=== PATIENT | male | born 1975 | race American Indian/Alaskan Native ===

== ENCOUNTER 2025-05-30 01:49 | Inpatient (IN) | payer MEDICAID, SELFPAY ==
[2025-05-30] VITALS (28 sets, daily range): BP systolic 114–182; BP diastolic 74–113; PULSE 51–90; RESP 14–20; TEMP 36.4–37.2; O2SAT 95–99; BMI 36.3
--- NOTE | 2025-05-30 02:05 | EKG_ITS ---
[facility] Test Date: 2025-05-30 Pat Name: UZAIR CANADA Department: Room: - Gender: Male Manager Process Improvement: : 1975 Requested By: ED Temporary Provider Order Number: [id number] Reading MD: ED Temporary Provider Measurements Intervals [place] Rate: 84 P: 16 ME: 124 QRS: -2 QRSD: 82 T: -18 QT: 340 QTc: 403 Interpretive Statements SINUS RHYTHM LOW QRS VOLTAGE IN PRECORDIAL LEADS [QRS DEFLECTION < 1.0 mV IN CHEST LEADS] MODERATE T-WAVE ABNORMALITY, CONSIDER ANTERIOR ISCHEMIA [-0.1+ mV T-WAVE IN V3/V4] Compared to ECG 06/17/2021 14:33:46 Possible ischemia now present T-wave abnormality still present /store/S0/[id number].pdf
--- NOTE | 2025-05-30 03:06 | XR_ITS ---
Examination: PA lateral chest 2 views Technique: Upright PA and lateral chest 2 views Date and time: May 30, 2025 0314 hrs., Comparison April 07, 2022 Indications: Intermittent chest pain beginning this week. Normal heart size No lobar pneumonia or pulmonary edema. The osseous structures are intact Impression: No pneumonia or pulmonary edema
[2025-05-30 03:23] LABS: Collection Type, Urine Clean Catch; Squamous Epithelial Cell,Urine 0 /hpf (0-5); WBC,Urine 0 /hpf (0-5)
[2025-05-30 03:25] LABS: Bilirubin,Urine Negative (Negative); Blood,Urine Negative (Negative); Clarity,Urine Clear (Clear/Hazy); Color,Urine Colorless (Lt Yel-Yel); Culture Indicated,Urine Not Indicated; Glucose, Urine Negative (Negative); Ketones,Urine Negative (Negative); Leukocyte Esterase,Urine Negative (Negative); Nitrite,Urine Negative (Negative); PH,Urine 6.5 (5.0-7.0); Protein,Urine Negative (Neg - Trace); RBC,Urine < 1 /hpf (0-3); Specific Gravity,Urine 1.004 (1.001-1.035); Urobilinogen,Urine Negative mg/dL (0.0-1.0)
[2025-05-30 03:37] LABS: Basophils # (Auto) 0.1 Thou/mm3 (0.0-0.2); Basophils % (Auto) 0 % (0-2.5); Eosinophils # (Auto) 0.0 Thou/mm3 (0.0-0.5); Eosinophils % (Auto) 0 % (0-10); Hematocrit 45.2 % (41.0-53.0); Hemoglobin 15.3 g/dL (13.5-16.0); Immature Granulocytes Auto 0.05 Thou/mm3 (0.00-0.00); Lymphocytes # (Auto) 1.6 Thou/mm3 (1.0-4.8); Lymphocytes % (Auto) 13 % (10-50); Mean Corpuscular HGB Conc 33.8 g/dl (31.0-37.0); Mean Corpuscular Hemoglobin 29.7 pg (25.0-35.0); Mean Corpuscular Volume 88 fL (80-100); Monocytes # (Auto) 0.6 Thou/mm3 (0.0-0.8); Monocytes % (Auto) 5 % (0-12); Neutrophils # (Auto) 9.5 Thou/mm3 (1.8-7.7); Neutrophils % (Auto) 81 % (37-80); Nucleated Red Blood Cell # 0.00 Thou/mm3 (0.00-0.00); Nucleated Red Blood Cell % 0 /100 WBC (0); Platelet Count 265 Thou/mm3 (140-440); RDW Standard Deviation 41.4 fL (35.1-43.9); Red Blood Count 5.16 Miln/mm3 (4.50-5.90); White Blood Count 11.8 Thou/mm3 (3.8-10.6)
--- NOTE | 2025-05-30 03:37 | PD.EDRME ---
Rapid Medical Screening Exam RME Arrival date/time: 05/30/25 01:49 Chief Complaint: Chest Pain Time Seen by Provider: 05/30/25 02:45 Vital signs: Vital Signs Temperature 98.5 F 05/30/25 02:30 Pulse Rate 90 05/30/25 02:30 Respiratory Rate 18 05/30/25 02:30 Blood Pressure 182/100 H 05/30/25 02:30 Pulse Oximetry (%) 97 05/30/25 02:30 Oxygen Delivery Method Room Air 05/30/25 02:30 Vital signs reviewed by provider: Yes RME Narrative: 50-year-old male with a past medical history of prediabetes, high cholesterol presents to the ER complaining of intermittent chest pain lasting about 5 minutes at a time which started when he was on a hike on Thursday, pain is worse with exertion associated with shortness of breath and nausea. Denies smoking, drug use. Rapid medical exam performed to expedite care and facilitate ED flow; ongoing evaluation and disposition by ED physician.
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
[2025-05-30 03:51] LABS: INR 1.0 (0.9-1.3); Prothrombin Time 11.3 Seconds (9.0-12.2)
[2025-05-30 04:10] LABS: Alanine Aminotransferase 32 U/L (10-49); Albumin, Serum 4.5 gm/dL (3.5-5.0); Albumin/Globulin Ratio 1.4 (1.2-2.2); Alkaline Phosphatase 97 U/L (46-116); Anion Gap 12 (7-16); Aspartate Amino Transferase 45 U/L (0-34); BUN/Creatinine Ratio 9 Ratio (12-20); Bilirubin,Total 0.6 mg/dL (0.3-1.2); Blood Urea Nitrogen 14 mg/dL (9-23); Calcium 9.6 mg/dL (8.3-10.6); Calcium (Corrected) 9.6 mg/dL (8.5-10.1); Carbon Dioxide 24.5 mMol/L (20.0-31.0); Chloride 106 mMol/L (98-107); Creatinine (Component) 1.5 mg/dL (0.6-1.3); Estimated Creatinine Clearance 72.4 mL/min (>60); Globulin 3.3 gm/dL (2.3-3.5); Glucose 116 mg/dL (74-106); Osmolality,Calculated 284 (275-295); Potassium 3.8 mMol/L (3.4-5.1); Sodium 142 mMol/L (136-145); Total Protein 7.8 gm/dL (5.7-8.2); eGFR 56 See Note
[2025-05-30 04:11] LABS: Troponin I 3.137 ng/mL (0.0-0.045)
[2025-05-30] MEDS: NITROGLYCERIN OINT 2% 1 INCH PACKET TOP (04:26)
[2025-05-30] MEDS: PROCHLORPERAZINE INJ 5 MG/ML VIAL 2 ML IV (04:39)
--- NOTE | 2025-05-30 04:39 | EKG_ITS ---
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
[2025-05-30] MEDS: MORPHINE SULF INJ 4 MG/ML VIAL IVP (04:42)
[2025-05-30 05:11] LABS: Partial Thromboplastin Time 27.3 Seconds (22.0-36.0)
--- NOTE | 2025-05-30 05:43 | ECHO_ITS ---
Transthoracic Echo Report Ht (in): 68 Wt (lb): 245 Exam Location: Echo Lab Status: Inpatient Union Laborer: Fauzia Miles Indications: Procedure Performed: BP: 137 / 99 HR: 56 MEASUREMENTS (Male / Female) Normal Values 2D ECHO LV Diastolic Diameter PLAX 5.5 cm 4.2 - 5.9 / 3.9 - 5.3 cm LV Systolic Diameter PLAX 3.5 cm IVS Diastolic Thickness 0.9 cm 0.6 - 1.0 / 0.6 - 0.9 cm LVPW Diastolic Thickness 1.1 cm 0.6 - 1.0 / 0.6 - 0.9 cm LV Relative Wall Thickness 0.4 LVOT Diameter 2.0 cm LA Volume Index 30.1 cm?/m? 16 - 28 cm?/m? Ascending Aorta Diameter 3.6 cm M-MODE AV Cusp Separation MM 1.8 cm DOPPLER AV Peak Velocity 119.0 cm/s AV Peak Gradient 5.7 mmHg AV Mean Gradient 3.0 mmHg AV Velocity Time Integral 27.8 cm LVOT Peak Velocity 96.1 cm/s LVOT Peak Gradient 3.7 mmHg LVOT Velocity Time Integral 22.7 cm LVOT Cardiac Index 1695.3 cm?/min?m? AV Area Cont Eq vti 2.6 cm? AV Area Cont Eq pk 2.5 cm? MV Area PHT 4.2 cm? Mitral E Point Velocity 71.3 cm/s Mitral A Point Velocity 63.8 cm/s Mitral E to A Ratio 1.1 LV E' Lateral Velocity 8.3 cm/s Mitral E to LV E' Lateral Ratio 8.6 LV E' Septal Velocity 7.6 cm/s Mitral E to LV E' Septal Ratio 9.4 TR Peak Velocity 175.0 cm/s TR Peak Gradient 12.3 mmHg PV Peak Velocity 71.9 cm/s PV Peak Gradient 2.1 mmHg FINDINGS Left Ventricle Normal left ventricular size, wall thickness, systolic function with no obvious regional wall motion abnormalities. Normal left ventricular diastolic filling pattern for age. The ejection fraction is visually estimated at 55-60 %. Right Ventricle The right ventricle is normal in size and systolic function. Left Atrium The left atrial cavity size is mildly increased. Right Atrium The right atrium is normal by two-dimensional imaging, color flow and Doppler imaging with no structural abnormalities, no thrombus formation present. Atrial Septum The interatrial septum appears normal with no evidence of a shunt. Aorta The aorta is normal by two-dimensional, color flow and Doppler interrogation. Mitral Valve The mitral valve is normal by two-dimensional, color flow and Doppler interrogation. There is no significant mitral valve regurgitation, stenosis or prolapse. Aortic Valve The aortic valve is trileaflet and normal by two-dimensional, color flow and Doppler interrogation. There is no significant aortic valve regurgitation. Tricuspid Valve The tricuspid valve is normal by two-dimensional, color flow and Doppler interrogation.there is trace tricuspid valve regurgitation. Pulmonic Valve The pulmonic valve is not well visualized. Mild pulmonic valve regurgitation. Vessels The pulmonary artery appears normal. The inferior vena cava pulmonary and hepatic veins appear normal. Pericardium The pericardium is normal by two-dimensional imaging. There is no significant pericardial effusion. CONCLUSIONS Indication: Chest pain NSTEMI Normal left ventricular size and function. Approximate ejection fraction is 55- 60%. The right ventricle is normal in size and systolic function. Mild dilated LA Trace tricuspid and mild pulmonic regurgitation noted. Kyra Worthy (Electronically Signed) Final Date: 30 May 2025 17:39
[2025-05-30] MEDS: HEPARIN SOD INJ 5000 UNIT/ML VIAL 4000 UNIT IV (05:47)
[2025-05-30] MEDS: Heparin/D5w 25K 250 ML Ivpb 25,000 UNIT/250 ML BAG 10.002 UNIT IV (05:48)
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
[2025-05-30 06:09] LABS: Troponin I 15.713 ng/mL (0.0-0.045)
[2025-05-30] MEDS: ATORVASTATIN CALCIUM 20 MG TABLET 80 MG PO ×2 (06:12→20:29)
--- NOTE | 2025-05-30 06:23 | PC.NURSE ---
DR. JAY AT BEDSIDE TO SEE PT
[2025-05-30 07:19] LABS: B-Type Natriuretic Peptide < 20 pg/mL (0-100)
[2025-05-30 07:55] LABS: Alcohol, Urine Negative (Negative); Amphetamine/Methamp Scrn,U Negative (Negative); Barbiturate Screen,Urine Negative (Negative); Benzodiazepines Screen,Urine Negative (Negative); Benzoylecgonine Screen, Ur Negative (Negative); Fentanyl Screen,Urine Negative (Negative); Opiate Screen,Urine Negative (Negative); THC Screen,Urine Negative (Negative)
--- NOTE | 2025-05-30 08:01 | PC.NURSE ---
Pt taken to photo lab specialist at [id number]
[2025-05-30] MEDS: TICAGRELOR 90 MG TABLET 180 MG PO (08:10)
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
--- NOTE | 2025-05-30 09:41 | PC.NURSE ---
0941 patient is awake, alert, breathing unlabored, s/p C with PCI by Dr. Moore, TR band present to right wrist with no bleeding or hematoma. Report given to June YANG, patient to stop Heparin drip per Dr. Moore, start aspirin 81mg daily tomorrow 05/31/25 and Brilinta 90mg BID starting tonight. Patient will be admitted to tele and needs to be recovered in coreroom foundry laborer until TR band removed.
[2025-05-30 11:39] LABS: ACT (CATH LAB ONLY) 199.0 Seconds (89-169)
--- NOTE | 2025-05-30 13:16 | PC.NURSE ---
Per Dr. Moore give metoprolol dose from 0900 now. aware of BP and HR
[2025-05-30] MEDS: METOPROLOL TARTRATE 25 MG TABLET 50 MG PO ×2 (13:19→20:29)
--- NOTE | 2025-05-30 13:35 | ESCONSULT_ITS ---
<Statement entered by David Moore MD - 05/31/25 18:02> The patient is personally examined evaluated by me in the emergency room admitted to the hospital overnight severe substernal chest discomfort though he had chest discomfort couple of days came to the hospital severe pain overnight troponin level went up from 3 up to 15 EKG was unremarkable patient underwent emergency left heart catheterization coronary angiogram PCI of the circumflex artery OM branch culprit lesion with no complications patient is being admitted to the hospital overnight possible for additional 1 to 2 days of post OR management. Evaluate the patient with resident physician Dr. Logan Villarreal MD PGY2 agree with the treatment plan recommendation as documented and will continue to monitor the patient. HPI Data of Consult Consult date: 05/30/25 Requesting Physician: Cruzito Witt MD Admitting Provider: Esteban Miller MD Attending Provider: David Moore MD Primary Care Provider: Erik Trinidad PA-C Consult Narrative Reason for consult: chest pain History of present illness: 58-year-old male with past medical history of hypertension, remote history of gallstone pancreatitis presented to the emergency department due to chest pain. He has had a few episodes of recurrent exertional chest pressure, epigastric burning sensation over the weekend. Thursday however patient developed severe substernal crushing chest pain lasting around a few minutes to an hour. In the ED patient had initial troponins of 3 later up trended to 15 with continued chest discomfort intermittent relief. EKG showed nonspecific T wave changes in lateral leads. Cardiology was consulted and recommended to have acute coronary intervention for primary angioplasty for NSTEMI. ED course: BP 182/100, HR 90, saturating 97% room air. Labs significant for troponins of 3 that are uptrending to 15 and mild elevation in creatinine. EKG shows T wave inversions in V3?V6. In the ED patient was given nitroglycerin, morphine, aspirin 325 and started on heparin drip per [facility] protocol. PMHx: As above SX Hx: Cholecystectomy, right hand fracture Social Hx: Remote history of tobacco and alcohol use, remote history of marijuana use not currently. FH X: Unknown cc:: cc: Cruzito Witt MD Exam Vital Signs Temp Pulse Resp BP Pulse Ox O2 Del Method 97.5 F 69 19 141/77 H 97 Room Air 05/30/25 13:26 05/30/25 13:26 05/30/25 13:26 05/30/25 13:26 05/30/25 13:26 05/30/25 13:26 Narrative Exam Physical Exam GENERAL: NAD, AAOx3 HEENT: Moist mucosa. Eyes open, symmetrical, & clear CARDIO: Heart RRR, no obvious murmurs PULM: No noted coughing/dyspnea CTA B/L, no R/W/R GI: Abdomen soft, nondistended, no pain on palpation. BSx4 SKIN/MSK/EXT: No wounds/rashes/edema/amputations, no pain on palpation. Pedal pulses present B/L NEURO: AAOx3, no focal neuro deficits, able to move all 4 extremities Results Labs 05/31/25 05:31 05/31/25 05:31 Labs: Short CBC 05/30/25 Range/Units 03:28 WBC 11.8 H (3.8-10.6) Thou/mm3 Hgb 15.3 (13.5-16.0) g/dL Hct 45.2 (41.0-53.0) % Plt Count 265 (140-440) Thou/mm3 BMP 05/30/25 03:28 Sodium 142 Potassium 3.8 Chloride 106 Carbon Dioxide 24.5 BUN 14 Creatinine 1.5 H Glucose 116 H Calcium 9.6 Cardiac Enzymes 05/30/25 05/30/25 Range/Units 03:28 05:39 Troponin I 3.137 H* 15.713 H* D (0.0-0.045) ng/mL Liver Function 05/30/25 Range/Units 03:28 Total Bilirubin 0.6 (0.3-1.2) mg/dL AST 45 H (0-34) U/L ALT 32 (10-49) U/L Alkaline Phosphatase 97 (46-116) U/L Albumin 4.5 (3.5-5.0) gm/dL Urine 05/30/25 Range/Units 03:18 Urine Color Colorless A (Lt Yel-Yel) Urine Clarity Clear (Clear/Hazy) Urine pH 6.5 (5.0-7.0) Ur Specific [place] 1.004 (1.001-1.035) Urine Protein Negative (Neg - Trace) Urine Glucose (UA) Negative (Negative) Quality Measures Quality Measures none Medications Home Medications and Allergies Home Medications ?Medication ?Instructions ?Recorded ?Confirmed ?Type No Known Home Medications 05/30/2505/15 History Allergies Allergy/AdvReac Type Severity Reaction Status Date / Time Milk Containing Products Allergy Severe Palpitation Verified 05/30/25 08:40 (Dairy) (Milk Containing s Products) magnesium AdvReac Mild ANXIETY Verified 05/30/25 08:40 Visit Medications Acetaminophen (Acetaminophen 325 Mg Tablet) 650 mg PO Q6H PRN PRN Reason: Fever >100.4 Stop: 06/29/25 05:39 Aspirin (Aspirin Ec 81 Mg Tabec) 81 mg PO DAILY [facility] Stop: 06/30/25 08:59 Atorvastatin Calcium (Atorvastatin Calcium 20 Mg Tablet) 80 mg PO HS [facility] Stop: 06/29/25 05:49 Last Admin: 05/30/25 06:12 Dose: 80 mg Metoprolol Tartrate (Metoprolol Tartrate 25 Mg Tablet) 50 mg PO BID [facility] Stop: 06/29/25 08:59 Last Admin: 05/30/25 13:19 Dose: 50 mg Morphine Sulfate (Morphine Sulf Inj 4 Mg/Ml Vial) 4 mg IVP Q4HR PRN PRN Reason: Pain 7-10 Stop: 06/04/25 05:39 Morphine Sulfate (Morphine Sulf Inj 4 Mg/Ml Vial) 2 mg IVP Q4HR PRN PRN Reason: Pain 4-6 Stop: 06/04/25 05:39 Nitroglycerin (Nitroglycerin 0.4 Mg Subl Btl #25) 0.4 mg SL Q5MIN PRN PRN Reason: CHEST PAIN Ondansetron HCl (Ondansetron Inj 2 Mg/Ml Inj 2 Ml) 4 mg IVP Q6H PRN; Protocol PRN Reason: NAUSEA OR VOMITING Stop: 06/29/25 05:39 Pantoprazole Sodium (Pantoprazole Inj 40 Mg Vial) 40 mg IVP QDAY [facility] Stop: 06/29/25 08:59 Last Admin: 05/30/25 13:19 Dose: 40 mg Ticagrelor (Ticagrelor 90 Mg Tablet) 90 mg PO BID [facility] Stop: 06/29/25 20:59 Discontinued Medications Aspirin (Aspirin 325 Mg Tablet) 325 mg PO X1 ONE Stop: 05/30/25 04:19 Last Admin: 05/30/25 04:38 Dose: 325 mg Heparin Sodium (Porcine) (Heparin Sod Inj 5000 Unit/Ml Vial) 4,000 unit IV X1 ONE; Protocol Stop: 05/30/25 04:19 Last Admin: 05/30/25 05:47 Dose: 4,000 unit Heparin Sodium/Dextrose (Heparin In D5w Ivpb) 25,000 unit in 250 mls @ 10.002 mls/hr IV .Q24H AMANDA; Protocol Stop: 06/13/25 04:29 Last Titration: 05/30/25 08:29 Dose: 0 units/kg/hr, 0 mls/hr Sodium Chloride (Ns 0.45%) 500 mls @ 100 mls/hr IV .Q5H AMANDA Stop: 06/29/25 09:59 Last Admin: 05/30/25 13:09 Dose: Not Given Morphine Sulfate (Morphine Sulf Inj 4 Mg/Ml Vial) 4 mg IVP X1 ONE Stop: 05/30/25 03:52 Last Admin: 05/30/25 04:42 Dose: 4 mg Nitroglycerin (Nitroglycerin Oint 2% 1 Inch Packet) 1 inch TOP X1 ONE Stop: 05/30/25 03:53 Last Admin: 05/30/25 04:26 Dose: 1 inch Prochlorperazine Edisylate (Prochlorperazine Inj 5 Mg/Ml Vial 2 Ml) 5 mg IV X1 ONE; Protocol Stop: 05/30/25 03:48 Last Admin: 05/30/25 04:39 Dose: 5 mg Ticagrelor (Ticagrelor 90 Mg Tablet) 180 mg PO X1 ONE Stop: 05/30/25 07:27 Last Admin: 05/30/25 08:10 Dose: 180 mg Assessment & Plan Plan 50-year-old male with PMHx of untreated hypertension presenting to ED with chest pain, admitted for acute coronary syndromes with finding of NSTEMI on EKG and elevated troponin. #Type 1 NSTEMI #Acute Coronary Syndrome Presenting with chest pain that started intermittently, became persistent and recurrent over the last few days. From patients description seems to be exertional, associated with shortness of breath and palpitations. On presentation he rated his pain as moderate, substernal, burning in nature, nonradiating, without diaphoresis. Symptoms improved with nitroglycerin EKG shows some T wave inversions in leads V3-V6 with troponins of 3-->15 was started on heparin drip and given loading dose of aspirin, and was transferred to electroplating laborer for primary PCI in setting of NSTEMI PCI findings: Single-vessel coronary artery with evidence of acute myocardial infarction secondary to obtuse marginal branch occlusion, 99% stenosis, preprocedure stenosis, post-procedure 0%. Underwent successful PCI stent placed using a drug-eluting stent 2.5 x 12 mm Jacky stent with excellent results. Echo:Normal left ventricular size and function. Approximate ejection fraction is 55-60%. The right ventricle is normal in size and systolic function. Mild dilated LA. Trace tricuspid and mild pulmonic regurgitation noted. ? Start DAPT with Aspirin and Brillinta for 12 months ? Continue Metoprolol 50 mg BID ? Continue high intensity statin ? Start ARB such as losartan if BP permits ? F/u TSH, A1C, lipid panel ? Can be discharged in 24-48 hours of observation #Acute kidney injury #Isolated AST elevation #Leukocytosis -as per primary team Case discussed with my attending Dr. Oscar Villarreal MD PGY-2 Disclaimer: Despite multiple revisions, due to the dictation software being used, the document bellow may not be free of grammatical errors including phonetic/typographic errors. However, this does not deter from our commitment to providing health care in the patient's best interest in mind.
[2025-05-30 14:34] LABS: Partial Thromboplastin Time 27.3 Seconds (22.0-36.0)
--- NOTE | 2025-05-30 19:15 | PC.NURSE ---
Heparin drip discontinued but still showing up on NOV as on hold. Pharmacist Zana states to call [facility]. [facility] aware and working on issues.
--- NOTE | 2025-05-30 20:05 | ESOP_ITS ---
RE: UZAIR [place] : 1975 DATE OF OPERATION: 05/30/2025 PROCEDURES PERFORMED: 1. Emergency diagnostic left heart cardiac catheterization, selective coronary angiogram, left ventricular angiogram (CPT 15814). 2. Emergency percutaneous coronary intervention, PTCA stent placement of the left circumflex artery - obtuse marginal branch OM1 with a diagnosis of acute myocardial infarction (NSTEMI) CPT 58370. 3. Conscious sedation for 45-minute duration. 4. Ultrasound-guided access to right radial artery. DIAGNOSES: Acute myocardial infarction, severe chest pain, and elevated troponin levels. HISTORY AND INDICATIONS: The patient is a 50-year-old male with no major medical problems except for history of gallstone pancreatitis in the past. He never had any cardiac problems. Borderline diabetes mellitus. He was doing well until recently. A couple of days ago, he had episodes of recurrent exertional chest tightness, burning sensation, and epigastric discomfort over the weekend and Thursday, but the Thursday night, last night, the patient had severe substernal crushing chest pain that lasted several minutes to an hour or two, came to the emergency room and was found to have nonspecific T change in lateral leads and evidence of troponin elevation initially 3 went up to 15 _ and continued to have chest discomfort intermittent episodes. Because of diagnosed acute myocardial infarction with ST-T wave changes NSTEMI and persistent angina, the patient was given aspirin, Brilinta, as well as heparin. Recommended to have acute coronary intervention for primary angioplasty with a diagnosis of acute myocardial infarction with no ST elevation. The patient has class I indication for emergency PCI procedures. DESCRIPTION OF PROCEDURE: The patient was brought to the cardiac catheterization laboratory. He was given Versed 2 mg and 50 mcg of fentanyl for conscious sedation, right radial approach taken. The right radial artery was cannulated by micropuncture technique. A 6-[place] Glidesheath was introduced. Selective right and left coronary angiogram, left heart catheterization, and left ventricular angiogram performed by a TIG4 diagnostic catheter. Right coronary angiogram was performed by an FR4 diagnostic catheter. Subsequently, PCI was undertaken. FINDINGS: Right coronary artery is large, dominant, and showed mild plaque at the bifurcation. No significant stenosis. PDA posterolateral branch appeared normal. Left coronary system: Left main coronary artery is normal. Left anterior descending artery showed no significant stenosis. Left circumflex artery is large , 2.5 mm obtuse marginal branch of circumflex artery is the culprit lesion showed a subtotal 99% stenosis with CHALINO 2 flow. This is a culprit lesion causing acute myocardial infarction. The distal left circumflex artery showed evidence of a 30% to 40% stenosis as well, not significant. Following the diagnostic procedure, PCI was undertaken. The patient was given a radial cocktail with 3000 units of heparin IV, additional 3000 units of heparin was given and ACT was above 300, preceded with PCI of the right circumflex artery obtuse marginal branch culprit lesion. A 6-[place] JL 3.5 guiding catheter was used to cannulate the left main coronary artery. A 0.014 run through guidewire was used to cross the lesion successfully. Initially, a 2.5 mm x 12 mm balloon was used to dilate the lesion with 10 atmospheric pressures. Subsequently, we proceeded with stent placement of the large obtuse marginal branch. A 2.5 x 12 mm Jacky Medtronic stent was deployed successfully . A small superior branch showed CHALINO 1 flow, which should recanalize by itself. Final angiogram showed a widely patent obtuse marginal branch, no significant residual stenosis. Left ventricular angiogram showed following findings: Left ventricular angiogram showed normal ejection fraction of 60%. Left ventricular pressure was 105, EDP was only 10, aortic pressure was 105/17. No gradient across the aortic valve. SUMMARY OF FINDINGS: 1. Single-vessel coronary artery with evidence of acute myocardial infarction secondary to obtuse marginal branch occlusion, 99% stenosis, preprocedure stenosis, post-procedure 0%. Underwent successful PCI stent placed using a drug-eluting stent 2.5 x 12 mm Zeigler stent with excellent results. Complications none. Subsequently, a TR band was applied. Hemostasis was secured. The patient will be kept on an aspirin and Brilinta combination. Echocardiogram will be obtained. The patient can be discharged home in 24 to 48 hours depending on his symptoms. Recommended to have guideline-directed medical management with dual antiplatelet drug therapy, aspirin and Brilinta for the next 12 months and continue high-dose statin therapy, obtain LDL cholesterol levels, low-dose beta-love and ARB as tolerated depending on blood pressure readings. DT: 18:16:22 TT: 19:33:00 Ref: [id number] - TID: [id number] [facility]
--- NOTE | 2025-05-30 20:28 | PC.NURSE ---
Received a call from [facility] - Pharm[facility]IT staff, issue regarding discontinued order of heparin, does not reflect in E mar, states IT is reviewing the discontinue order.
[2025-05-30] MEDS: TICAGRELOR 90 MG TABLET PO (20:29)
[2025-05-31] VITALS (9 sets, daily range): BP systolic 110–137; BP diastolic 70–88; PULSE 56–87; RESP 11–21; TEMP 35.9–36.8; O2SAT 96–99; BMI 36.7
[2025-05-31 05:55] LABS: Basophils # (Auto) 0.1 Thou/mm3 (0.0-0.2); Basophils % (Auto) 1 % (0-2.5); Eosinophils # (Auto) 0.2 Thou/mm3 (0.0-0.5); Eosinophils % (Auto) 2 % (0-10); Hematocrit 45.0 % (41.0-53.0); Hemoglobin 14.8 g/dL (13.5-16.0); Immature Granulocytes Auto 0.04 Thou/mm3 (0.00-0.00); Lymphocytes # (Auto) 2.1 Thou/mm3 (1.0-4.8); Lymphocytes % (Auto) 20 % (10-50); Mean Corpuscular HGB Conc 32.9 g/dl (31.0-37.0); Mean Corpuscular Hemoglobin 29.2 pg (25.0-35.0); Mean Corpuscular Volume 89 fL (80-100); Monocytes # (Auto) 1.0 Thou/mm3 (0.0-0.8); Monocytes % (Auto) 9 % (0-12); Neutrophils # (Auto) 7.2 Thou/mm3 (1.8-7.7); Neutrophils % (Auto) 68 % (37-80); Nucleated Red Blood Cell # 0.00 Thou/mm3 (0.00-0.00); Nucleated Red Blood Cell % 0 /100 WBC (0); Platelet Count 250 Thou/mm3 (140-440); RDW Standard Deviation 43.2 fL (35.1-43.9); Red Blood Count 5.07 Miln/mm3 (4.50-5.90); White Blood Count 10.6 Thou/mm3 (3.8-10.6)
[2025-05-31 06:37] LABS: Alanine Aminotransferase 36 U/L (10-49); Albumin, Serum 4.1 gm/dL (3.5-5.0); Albumin/Globulin Ratio 1.5 (1.2-2.2); Alkaline Phosphatase 97 U/L (46-116); Anion Gap 9 (7-16); Aspartate Amino Transferase 78 U/L (0-34); BUN/Creatinine Ratio 7 Ratio (12-20); Bilirubin,Total 1.8 mg/dL (0.3-1.2); Blood Urea Nitrogen 9 mg/dL (9-23); Calcium 9.3 mg/dL (8.3-10.6); Calcium (Corrected) 9.3 mg/dL (8.5-10.1); Carbon Dioxide 26.5 mMol/L (20.0-31.0); Cardiac Risk Estimate 3.7 RATIO (4.0-6.7); Chloride 106 mMol/L (98-107); Cholesterol 159 mg/dL (132-200); Creatinine (Component) 1.3 mg/dL (0.6-1.3); Estimated Creatinine Clearance 82.7 mL/min (>60); Free T4 (Free Thyroxine) 1.24 ng/dL (0.89-1.76); Globulin 2.7 gm/dL (2.3-3.5); Glucose 98 mg/dL (74-106); HDL Cholesterol 43 mg/dL (40-60); LDL Cholesterol,Calculated 91 mg/dL (0-130); Magnesium 2.0 mg/dL (1.6-2.6); Osmolality,Calculated 279 (275-295); Phosphorous 3.3 mg/dL (2.4-5.1); Potassium 4.5 mMol/L (3.4-5.1); Sodium 141 mMol/L (136-145); Thyroid Stimulating Hormone 2.34 uIU/mL (0.55-4.78); Total Protein 6.8 gm/dL (5.7-8.2); Triglycerides 125 mg/dL (30-150); eGFR > 60 See Note
[2025-05-31 06:39] LABS: Glucose Estimated Average 114 mg/dL (80-131); Hemoglobin A1C 5.6 % Hgb (4.8-6.0)
[2025-05-31] MEDS: ASPIRIN EC 81 MG TABEC PO (08:10)
[2025-05-31] MEDS: TICAGRELOR 90 MG TABLET PO ×2 (08:10→20:38)
[2025-05-31] MEDS: METOPROLOL TARTRATE 25 MG TABLET 50 MG PO ×2 (08:11→20:38)
--- NOTE | 2025-05-31 08:31 | PD.RESDS ---
Planned Discharge Date 05/31/25 DS: Providers Provider Date of admission: 05/30/25 05:41 Primary care physician: Erik Trinidad PA-C Admitting Provider: Esteban Miller MD Attending Provider on Admission: Cruzito Witt MD Consults: 05/30/25 10:25 Consult to Cardiology Routine Comment: Consulting Provider: David Moore Attending Provider on DC: Royal Spangler MD Discharging Provider: Royal Spangler MD Hospital Course Hospital Course Hospital course: 58-year-old male with past medical history of hypertension, remote history of gallstone pancreatitis presented to the emergency department due to chest pain. He has had a few episodes of recurrent exertional chest pressure, epigastric burning sensation over the weekend. Thursday however patient developed severe substernal crushing chest pain lasting around a few minutes to an hour. In the ED patient had initial troponins of 3 later up trended to 15 with continued chest discomfort intermittent relief. EKG showed nonspecific T wave changes in lateral leads. Cardiology was consulted and recommended to have acute coronary intervention for primary angioplasty for NSTEMI. ED course: BP 182/100, HR 90, saturating 97% room air. Labs significant for troponins of 3 that are uptrending to 15 and mild elevation in creatinine. EKG shows T wave inversions in V3?V6. In the ED patient was given nitroglycerin, morphine, aspirin 325 and started on heparin drip per [facility] protocol. PMHx: As above SX Hx: Cholecystectomy, right hand fracture Social Hx: Remote history of tobacco and alcohol use, remote history of marijuana use not currently. FH X: Unknown Time Spent with Patient Time attestation: Total time spent providing and/or coordinating discharge services: Exam Vital Signs Temp Pulse Resp BP Pulse Ox O2 Del Method 97.2 F 80 17 132/81 H 96 Room Air 05/31/25 07:57 05/31/25 08:11 05/31/25 07:57 05/31/25 08:11 05/31/25 07:57 05/31/25 07:57 Discharge Plan Plan Patient Disposition: HOME (Self Care) Prescriptions/Referrals Prescriptions/Med Rec: New aspirin 81 mg Tablet,Delayed Release (Dr/Ec) 81 mg PO DAILY 30 Days Qty: 30 0RF ticagrelor [Brilinta] 90 mg Tablet 90 mg PO BID 30 Days Qty: 60 0RF atorvastatin 80 mg tablet 80 mg PO HS 30 Days Qty: 30 0RF metoprolol tartrate 50 mg tablet 50 mg PO BID 30 Days Qty: 60 0RF Referrals: Erik Trinidad PA-C [Primary Care Provider] Patient/Caregiver Discharge Instructions Other Discharge Activity Instructions:: Please see your PCP Print Language: Finnish Stand Alone Forms: [place] Award Info., Patient Portal Info Letter
--- NOTE | 2025-05-31 09:41 | CHAP ---
Spent time listening to patient giving encouragement and prayer.
[2025-05-31 11:20] LABS: Alanine Aminotransferase 44 U/L (10-49); Albumin, Serum 4.6 gm/dL (3.5-5.0); Albumin/Globulin Ratio 1.8 (1.2-2.2); Alkaline Phosphatase 116 U/L (46-116); Anion Gap 8 (7-16); Aspartate Amino Transferase 78 U/L (0-34); BUN/Creatinine Ratio 13 Ratio (12-20); Bilirubin,Total 2.2 mg/dL (0.3-1.2); Blood Urea Nitrogen 15 mg/dL (9-23); Calcium 9.9 mg/dL (8.3-10.6); Calcium (Corrected) 9.9 mg/dL (8.5-10.1); Carbon Dioxide 28.1 mMol/L (20.0-31.0); Chloride 105 mMol/L (98-107); Creatinine (Component) 1.2 mg/dL (0.6-1.3); Estimated Creatinine Clearance 89.6 mL/min (>60); Globulin 2.6 gm/dL (2.3-3.5); Glucose 89 mg/dL (74-106); Osmolality,Calculated 281 (275-295); Potassium 4.4 mMol/L (3.4-5.1); Sodium 141 mMol/L (136-145); Total Protein 7.2 gm/dL (5.7-8.2); eGFR > 60 See Note
--- NOTE | 2025-05-31 13:46 | XR_ITS ---
Examination: Abdomen sonogram, complete Date and time of exam: May 31, 2025 1411 hours INDICATIONS: Elevated bilirubin on laboratory examination today. Technique: Multiple real-time grayscale transabdominal sonographic images of the abdomen have been obtained. Findings: Absent gallbladder Common bile duct 0.5 cm Pancreas obscured by bowel gas. Aorta normal size Liver 17.6 cm 14 mm left lobe liver cyst Normal hepatopedal portal venous flow Patent IVC Right kidney 12.6 cm cortex 2.0 cm Left kidney 11.2 cm cortex 1.7 cm Mild renal parenchymal scar formation No hydronephrosis Spleen 9.7 cm IMPRESSION: Normal common bile duct, no common bile duct stones Mild to moderate hepatomegaly
--- NOTE | 2025-05-31 14:26 | ESPR_ITS ---
<Statement entered by Cruzito Witt MD - 06/08/25 17:35> I reviewed above note and agree with findings and plans. I have also personally examined the patient with medicine team and went over assessment and plan with medical team including planner intern and resident physician. <Statement entered by Shaniqua Ferrera MD - 05/31/25 16:05> I discussed with and supervised the planner intern physician who took care of this patient. I personally saw and examined the patient and discussed the assessment and plan with the entire medicine team, including my attending Dr. Witt, I agree with most of the assessment and plan as documented below Shaniqua Ferrera M.D. PGY-3 Documentation for date of: 05/31/25 Subjective Subjective Interval history: Patient examined at bedside. NAOE. Patient is overall feeling good today. Was pending discharge today but CMP today showed elevated T. bili of 1.2 with repeat T. bili of 1.4. He's has a history of cholecystectomy, likely secondary to choledocholithiasis from review of labs prior to this admission. RUQ US, likely discharge tomorrow. Exam Vital Signs Temp Pulse Resp BP Pulse Ox O2 Del Method 96.6 F L 66 21 H 132/81 H 99 Room Air 05/31/25 12:00 05/31/25 12:00 05/31/25 12:00 05/31/25 12:00 05/31/25 12:00 05/31/25 12:00 Narrative Exam General: Middle aged patient, pleasant, conversational, no acute distress, HEENT: No JVD noted. Mucosa moist. Pupils are equal and reactive to light bilaterally Cardiovascular: Normal S1 and S2. Regular and regular rhythm. No murmur appreciated Respiratory: Clear to auscultation bilaterally without wheezes or crackles. Abdomen: Soft, nontender, not distended, Skin: Dry, no rashes or bruising Musculoskeletal: No gross injuries. Bandage on right radial artery. Able to move all 4 extremities. Non edematous lower extremities. Neuro: Alert and oriented x3. No focal neuro deficits. Psych: Normal affect and mood Objective Labs 05/31/25 05:31 05/31/25 10:15 Labs: Laboratory Results - last 24 hr 05/30/25 05/31/25 05/31/25 13:58 05:31 10:15 WBC 10.6 RBC 5.07 Hgb 14.8 Hct 45.0 MCV 89 MCH 29.2 MCHC 32.9 RDW Std Deviation 43.2 Plt Count 250 Neut % (Auto) 68 Lymph % (Auto) 20 [place] % (Auto) 9 Eos % (Auto) 2 Baso % (Auto) 1 Neut # (Auto) 7.2 Lymph # (Auto) 2.1 [place] # (Auto) 1.0 H Eos # (Auto) 0.2 Baso # (Auto) 0.1 Immature Gran # (Auto) 0.04 H Absolute Nucleated RBC 0.00 Immature Gran % 0 Nucleated RBC % 0 APTT 27.3 Sodium 141 141 Potassium 4.5 D 4.4 Chloride 106 105 Carbon Dioxide 26.5 28.1 Anion Gap 9 8 BUN 9 15 Creatinine 1.3 1.2 Estim Creat Clear Calc 82.7 89.6 eGFR > 60 > 60 BUN/Creatinine Ratio 7 L 13 Glucose [address] Glu mg/dL 114 Hemoglobin A1c 5.6 Calculated Osmolality 279 281 Calcium 9.3 9.9 Corrected Calcium 9.3 9.9 Phosphorus 3.3 Magnesium 2.0 Total Bilirubin 1.8 H D 2.2 H AST 78 H 78 H ALT 36 44 Alkaline Phosphatase 97 116 Total Protein 6.8 7.2 Albumin 4.1 4.6 D Globulin 2.7 2.6 Albumin/Globulin Ratio 1.5 1.8 Triglycerides 125 Cholesterol 159 LDL Cholesterol, Calc 91 HDL Cholesterol 43 Cholesterol/HDL Ratio 3.7 L TSH 2.34 Free T4 1.24 Quality Measures Quality Measures none Assessment & Plan Assessment Current Active Medications: Generic Name Dose Route Start Last Admin Trade Name Lolly PRN Reason Stop Dose Admin Acetaminophen 650 mg 05/31/25 06:17 Acetaminophen 325 Mg Tablet PO 06/29/25 05:39 Q6H PRN Fever >100.4 and pain 1-3 Aspirin 81 mg 05/31/25 09:00 05/31/25 08:10 Aspirin Ec 81 Mg Tabec PO 06/30/25 08:59 81 mg DAILY AMANDA Administration Atorvastatin Calcium 40 mg 05/31/25 21:00 Atorvastatin Calcium 20 Mg Tablet PO 06/30/25 20:59 HS AMANDA Metoprolol Tartrate 50 mg 05/30/25 09:00 05/31/25 08:11 Metoprolol Tartrate 25 Mg Tablet PO 06/29/25 08:59 50 mg BID AMANDA Administration Morphine Sulfate 4 mg 05/30/25 05:40 Morphine Sulf Inj 4 Mg/Ml Vial IVP 06/04/25 05:39 Q4HR PRN Pain 7-10 Morphine Sulfate 2 mg 05/30/25 05:40 Morphine Sulf Inj 4 Mg/Ml Vial IVP 06/04/25 05:39 Q4HR PRN Pain 4-6 Nitroglycerin 0.4 mg 05/30/25 05:47 Nitroglycerin 0.4 Mg Subl Btl #25 SL Q5MIN PRN CHEST PAIN Ondansetron HCl 4 mg 05/30/25 05:40 Ondansetron Inj 2 Mg/Ml Inj 2 Ml IVP 06/29/25 05:39 Q6H PRN NAUSEA OR VOMITING Protocol Pantoprazole Sodium 40 mg 05/30/25 09:00 05/31/25 08:09 Pantoprazole Inj 40 Mg Vial IVP 06/29/25 08:59 40 mg QDAY AMANDA Administration Ticagrelor 90 mg 05/30/25 21:00 05/31/25 08:10 Ticagrelor 90 Mg Tablet PO 06/29/25 20:59 90 mg BID AMANAD Administration Plan This is a 50-year-old male with PMHx of untreated hypertension presenting to ED with chest pain, admitted for acute coronary syndromes with finding of NSTEMI on EKG and elevated troponin. Appreciate recommendations from cardiology team. #NSTEMI, type I Presenting with chest pain that started intermittently, became persistent and recent frequency over the last few days. Appears to be exertional, associated with shortness of breath and palpitations. On presentation he rated his pain as moderate, substernal, burning in nature, nonradiating, without diaphoresis. Symptoms improved with NITRO. Initial troponin was [address] depression and T wave inversion in anterior lateral leads and septal leads. On repeat EKG, some of these changes appear to have resolved. He was started on a HEPARIN drip in the ED. Repeat troponin increased from 3 to 15. Coronary angiogram demonstrated 99% occlusion of the OM, which was stented. Patient remains in stable condition. - Admit tele ? Continue daily aspirin. - Ticegralor for one year. Started on 05/30/2025 ? Continue METOPROLOL tartrate 50 mg BID ? Continue high intensity statin. Cholesterol 159, LDL 91, HDL 43. ? Cardiac stratification: Normal LV size and function, EF 55-60%. Normal RV size and function. Mildly dilated LA. Trace TR and pulmonic regurge noted. TSH 2.34 with T4 1.24. #Elevated T.bili Isolated AST elevation AST 41, normal ALT and ALP. T. bili elevated 1.2 then 1.4. Currently asymptomatic without abdominal pain. -RUQ US #Acute kidney injury (Resolved) Admission CR 1.5, GFR 56, BUN 14. Last normal renal function on file from 2020. Likely related to dehydration versus poor perfusion. CKD less likely given resolution of renal function. Was likely ? Renally dose meds, avoid overdiuresis and NEPHROTOXINS ? Daily CMP #Leukocytosis (resolved) Likely reactive with WBC 12. Afebrile, no signs or symptoms of active infection. ? Daily labs Health maintenance Diet: Cardiac GI prophylaxis: PROTONIX DVT prophylaxis: SCD Antibiotics: Not indicated CODE STATUS: FULL-CODE Disposition: DC tomorrow pending RUQ US. Patient's plan and care discussed with my attending, MD Royal Resendiz, DO PGY-1 ([facility] Resident)
--- NOTE | 2025-05-31 15:50 | PC.SS ---
SS follow up note; Patient will possibly discharge tomorrow, pending Ultrasound.
--- NOTE | 2025-05-31 15:55 | PC.SS ---
Patient Shad Sawant is a 50 Year old male admitted for Chest Pain. SS met with patient at bedside to discuss discharge plan. Patient reports he lives at home with his family. Patient reports his life partner Mariluz Mooney is his surrogate decision maker, [phone]. Patient reports he does not utilize any source of DME to assist with ambulation. Choice of pharmacy is [facility]. PCP Erik Trinidad. At time of discharge patient will return back home. Patient's life partner will provide transportation. Discharge plan: Home Next of kin: life partner, Mariluz Mooney
--- NOTE | 2025-05-31 20:19 | ESPR_ITS ---
<Statement entered by David Moore MD - 06/03/25 14:13> I personally evaluated examined this patient was admitted to hospital acute myocardial infarction NSTEMI doing well underwent stent placement circumflex artery following procedure and no complications blood pressure control not having chest pain shortness of breath evaluated patient and and assessed with PGY 2 Dr. Villarreal agree with the treatment plan recommendation can be discharged home to have follow-up as an outpatient. Continue statin therapy as tolerated beta-love as tolerated ARB and CONNER as well as dual antiplatelet drug therapy with aspirin Brilinta. Documentation for date of: 05/31/25 Subjective Subjective Interval history: Patient seen today at the bedside found awake, alert, orientedx3. No overnight events reported. Vital signs stable at this time. No active complaints. No hematoma noted on puncture site. Can be discharged from a cardiology standpoint. Exam Vital Signs Temp Pulse Resp BP Pulse Ox O2 Del Method 98.1 F 69 18 121/82 98 Room Air 05/31/25 16:00 05/31/25 16:00 05/31/25 16:00 05/31/25 16:00 05/31/25 16:00 05/31/25 16:00 Narrative Exam Physical Exam GENERAL: NAD, AAOx3 HEENT: Moist mucosa. Eyes open, symmetrical, & clear CARDIO: Heart RRR, no obvious murmurs PULM: No noted coughing/dyspnea CTA B/L, no R/W/R GI: Abdomen soft, nondistended, no pain on palpation. BSx4 SKIN/MSK/EXT: No wounds/rashes/edema/amputations, no pain on palpation. Pedal pulses present B/L NEURO: AAOx3, no focal neuro deficits, able to move all 4 extremities Objective Labs 05/31/25 05:31 05/31/25 10:15 Labs: Laboratory Results - last 24 hr 05/31/25 05/31/25 05:31 10:15 WBC 10.6 RBC 5.07 Hgb 14.8 Hct 45.0 MCV 89 MCH 29.2 MCHC 32.9 RDW Std Deviation 43.2 Plt Count 250 Neut % (Auto) 68 Lymph % (Auto) 20 [place] % (Auto) 9 Eos % (Auto) 2 Baso % (Auto) 1 Neut # (Auto) 7.2 Lymph # (Auto) 2.1 [place] # (Auto) 1.0 H Eos # (Auto) 0.2 Baso # (Auto) 0.1 Immature Gran # (Auto) 0.04 H Absolute Nucleated RBC 0.00 Immature Gran % 0 Nucleated RBC % 0 Sodium 141 141 Potassium 4.5 D 4.4 Chloride 106 105 Carbon Dioxide 26.5 28.1 Anion Gap 9 8 BUN 9 15 Creatinine 1.3 1.2 Estim Creat Clear Calc 82.7 89.6 eGFR > 60 > 60 BUN/Creatinine Ratio 7 L 13 Glucose [address] Glu mg/dL 114 Hemoglobin A1c 5.6 Calculated Osmolality 279 281 Calcium 9.3 9.9 Corrected Calcium 9.3 9.9 Phosphorus 3.3 Magnesium 2.0 Total Bilirubin 1.8 H D 2.2 H AST 78 H 78 H ALT 36 44 Alkaline Phosphatase 97 116 Total Protein 6.8 7.2 Albumin 4.1 4.6 D Globulin 2.7 2.6 Albumin/Globulin Ratio 1.5 1.8 Triglycerides 125 Cholesterol 159 LDL Cholesterol, Calc 91 HDL Cholesterol 43 Cholesterol/HDL Ratio 3.7 L TSH 2.34 Free T4 1.24 Quality Measures Quality Measures none Assessment & Plan Assessment Current Active Medications: Generic Name Dose Route Start Last Admin Trade Name Freq PRN Reason Stop Dose Admin Acetaminophen 650 mg 05/31/25 06:17 Acetaminophen 325 Mg Tablet PO 06/29/25 05:39 Q6H PRN Fever >100.4 and pain 1-3 Aspirin 81 mg 05/31/25 09:00 05/31/25 08:10 Aspirin Ec 81 Mg Tabec PO 06/30/25 08:59 81 mg DAILY AMANDA Administration Atorvastatin Calcium 40 mg 05/31/25 21:00 Atorvastatin Calcium 20 Mg Tablet PO 06/30/25 20:59 HS [facility] Metoprolol Tartrate 50 mg 05/30/25 09:00 05/31/25 08:11 Metoprolol Tartrate 25 Mg Tablet PO 06/29/25 08:59 50 mg BID AMANDA Administration Morphine Sulfate 4 mg 05/30/25 05:40 Morphine Sulf Inj 4 Mg/Ml Vial IVP 06/04/25 05:39 Q4HR PRN Pain 7-10 Morphine Sulfate 2 mg 05/30/25 05:40 Morphine Sulf Inj 4 Mg/Ml Vial IVP 06/04/25 05:39 Q4HR PRN Pain 4-6 Nitroglycerin 0.4 mg 05/30/25 05:47 Nitroglycerin 0.4 Mg Subl Btl #25 SL Q5MIN PRN CHEST PAIN Ondansetron HCl 4 mg 05/30/25 05:40 Ondansetron Inj 2 Mg/Ml Inj 2 Ml IVP 06/29/25 05:39 Q6H PRN NAUSEA OR VOMITING Protocol Pantoprazole Sodium 40 mg 05/30/25 09:00 05/31/25 08:09 Pantoprazole Inj 40 Mg Vial IVP 06/29/25 08:59 40 mg QDAY AMANDA Administration Ticagrelor 90 mg 05/30/25 21:00 05/31/25 08:10 Ticagrelor 90 Mg Tablet PO 06/29/25 20:59 90 mg BID AMANDA Administration Plan 50-year-old male with PMHx of untreated hypertension presenting to ED with chest pain, admitted for acute coronary syndromes with finding of NSTEMI on EKG and elevated troponin. #Type 1 NSTEMI #Acute Coronary Syndrome Presenting with chest pain that started intermittently, became persistent and recurrent over the last few days. From patients description seems to be exertional, associated with shortness of breath and palpitations. On presentation he rated his pain as moderate, substernal, burning in nature, nonradiating, without diaphoresis. Symptoms improved with nitroglycerin EKG shows some T wave inversions in leads V3-V6 with troponins of 3-->15 was started on heparin drip and given loading dose of aspirin, and was transferred to track laborer for primary PCI in setting of NSTEMI PCI findings: Single-vessel coronary artery with evidence of acute myocardial infarction secondary to obtuse marginal branch occlusion, 99% stenosis, preprocedure stenosis, post-procedure 0%. Underwent successful PCI stent placed using a drug-eluting stent 2.5 x 12 mm [place] stent with excellent results. Echo:Normal left ventricular size and function. Approximate ejection fraction is 55-60%. The right ventricle is normal in size and systolic function. Mild dilated LA. Trace tricuspid and mild pulmonic regurgitation noted. ? Start DAPT with Aspirin and Brillinta for 12 months ? Continue Metoprolol 50 mg BID ? Continue high intensity statin ? Start ARB such as losartan if BP permits ? Can be discharged in 24-48 hours of observation #Acute kidney injury #Isolated AST elevation #Leukocytosis -as per primary team Case discussed with my attending Dr. Oscar Villarreal MD PGY-2 Disclaimer: Despite multiple revisions, due to the dictation software being used, the document bellow may not be free of grammatical errors including phonetic/typographic errors. However, this does not deter from our commitment to providing health care in the patient's best interest in mind.
[2025-05-31] MEDS: ATORVASTATIN CALCIUM 20 MG TABLET 40 MG PO (20:39)
[2025-06-01] VITALS: BP 145/97; PULSE 70; PULSE 89; RESP 26; TEMP 36.3; O2SAT 97
[2025-06-01 04:00] VITALS: BP 126/81; PULSE 64; RESP 18; TEMP 36.6; O2SAT 96
[2025-06-01 05:11] LABS: Basophils # (Auto) 0.1 Thou/mm3 (0.0-0.2); Basophils % (Auto) 1 % (0-2.5); Eosinophils # (Auto) 0.4 Thou/mm3 (0.0-0.5); Eosinophils % (Auto) 3 % (0-10); Hematocrit 44.5 % (41.0-53.0); Hemoglobin 15.1 g/dL (13.5-16.0); Immature Granulocytes Auto 0.05 Thou/mm3 (0.00-0.00); Lymphocytes # (Auto) 2.3 Thou/mm3 (1.0-4.8); Lymphocytes % (Auto) 19 % (10-50); Mean Corpuscular HGB Conc 33.9 g/dl (31.0-37.0); Mean Corpuscular Hemoglobin 30.1 pg (25.0-35.0); Mean Corpuscular Volume 89 fL (80-100); Monocytes # (Auto) 1.0 Thou/mm3 (0.0-0.8); Monocytes % (Auto) 8 % (0-12); Neutrophils # (Auto) 8.2 Thou/mm3 (1.8-7.7); Neutrophils % (Auto) 69 % (37-80); Nucleated Red Blood Cell # 0.00 Thou/mm3 (0.00-0.00); Nucleated Red Blood Cell % 0 /100 WBC (0); Platelet Count 267 Thou/mm3 (140-440); RDW Standard Deviation 42.9 fL (35.1-43.9); Red Blood Count 5.02 Miln/mm3 (4.50-5.90); White Blood Count 12.0 Thou/mm3 (3.8-10.6)
[2025-06-01 05:21] VITALS: BMI 36.7
[2025-06-01 05:26] LABS: INR 1.1 (0.9-1.3); Partial Thromboplastin Time 27.6 Seconds (22.0-36.0); Prothrombin Time 11.9 Seconds (9.0-12.2)
[2025-06-01 05:44] LABS: Alanine Aminotransferase 33 U/L (10-49); Albumin, Serum 4.3 gm/dL (3.5-5.0); Albumin/Globulin Ratio 1.7 (1.2-2.2); Alkaline Phosphatase 100 U/L (46-116); Anion Gap 10 (7-16); Aspartate Amino Transferase 42 U/L (0-34); BUN/Creatinine Ratio 12 Ratio (12-20); Bilirubin,Total 1.5 mg/dL (0.3-1.2); Blood Urea Nitrogen 15 mg/dL (9-23); Calcium 9.5 mg/dL (8.3-10.6); Calcium (Corrected) 9.5 mg/dL (8.5-10.1); Carbon Dioxide 25.5 mMol/L (20.0-31.0); Chloride 106 mMol/L (98-107); Creatinine (Component) 1.3 mg/dL (0.6-1.3); Estimated Creatinine Clearance 82.7 mL/min (>60); Globulin 2.6 gm/dL (2.3-3.5); Glucose 95 mg/dL (74-106); Magnesium 1.8 mg/dL (1.6-2.6); Osmolality,Calculated 282 (275-295); Phosphorous 4.2 mg/dL (2.4-5.1); Potassium 4.1 mMol/L (3.4-5.1); Sodium 141 mMol/L (136-145); Total Protein 6.9 gm/dL (5.7-8.2); eGFR > 60 See Note
[2025-06-01 08:00] VITALS: BP 109/78; PULSE 59; PULSE 60; RESP 17; TEMP 36; O2SAT 100
[2025-06-01] MEDS: TICAGRELOR 90 MG TABLET PO (09:31)
[2025-06-01] MEDS: ASPIRIN EC 81 MG TABEC PO (09:31)
[2025-06-01 09:32] VITALS: BP 109/78; PULSE 59
--- NOTE | 2025-06-01 10:03 | ESDS_ITS ---
<Statement entered by Cruzito Witt MD - 06/08/25 17:35> I reviewed above note and agree with findings and plans. I have also personally examined the patient with medicine team and went over assessment and plan with medical team including international project engineer and resident physician. <Statement entered by Shaniqua Ferrera MD - 06/01/25 20:33> I discussed with and supervised the international project engineer physician who took care of this patient. I personally saw and examined the patient and discussed the assessment and plan with the entire medicine team, including my attending Dr. Witt, I agree with most of the assessment and plan as documented below Shaniqua Ferrera M.D. PGY-3 Planned Discharge Date 06/01/25 DS: Providers Provider Date of admission: 05/30/25 05:41 Primary care physician: Erik Trinidad PA-C Admitting Provider: Esteban Miller MD Attending Provider on Admission: Cruzito Witt MD Consults: 05/30/25 10:25 Consult to Cardiology Routine Comment: Consulting Provider: David Moore Attending Provider on DC: Cruzito Witt MD Discharging Provider: Cruzito Witt MD DS: Diagnosis Problem List Completed Was Problem List Reviewed/Reconciled?: Yes Hospital Course Hospital Course Hospital course: This is a 50-year-old male with PMHx of untreated hypertension presenting to ED on 05/30 with intermittent exertional chest pain for 4 days. In the ED, his EKG showed inverted T-waves in V3, V4, V5, and V6, along with ST depression in anterior leads. Troponins trended from 3.137 to 15.7. Additionally, he was found to have CR 1.5, GFR 56, BUN 14. He was taken to the chemical processing laborer and was found to have a 99% occlusion of the obtuse marginal artery which was subsequently stented that same day. He was started on ticegralor that night and continued with daily aspirin the following day. In addition, metoprolol and atorvastatin was initiated. The following day (05/31), he remained hemodynamically stable, and KEVAN resolved, Cr 1.2, GFR >60, and BUN 14. He was noted to have an isolated elevation of T. bili and AST that was present on admission and increased on 9/17 with a peak of 2.2 and 78 respectively. Alkaline phosphatase remained within normal limits but abdominal US was obtained to rule out biliary stones. The patient remained asymptomatic throughout the duration of the workup. The abdominal US was negative for stones or CBD dilation, showed some fatty infiltrate of the liver. With negative US, asymptomatic, and without evidence of hemolysis, his abnormal lab values were attributed to him initiating a high intensity statin. He remained in stable condition after his heart cath and was subsequently discharged home in stable condition. Discharge diagnoses: #NSTEMI, type I #Elevated T.bili #Isolated AST elevation #Acute kidney injury (Resolved) Recommendations: PCP and Cardiology follow up within 1 week. Continue Brelinta for 1 year, 1st dose started on 05/30. Recommend repeat CMP at follow up for continued trending T.bili and AST. Patient's plan and care discussed with my attending, Dr. Eduar MD. Royal Spangler, PGY-1 ([facility] Resident) Time Spent with Patient Time attestation: Total time spent providing and/or coordinating discharge services: Time spent: Greater than 30 minutes Exam Vital Signs Temp Pulse Resp BP Pulse Ox O2 Del Method 96.8 F 59 L 17 109/78 100 Room Air 06/01/25 08:00 06/01/25 09:32 06/01/25 08:00 06/01/25 09:32 06/01/25 08:00 06/01/25 08:00 Narrative Exam General: Middle aged patient, pleasant, conversational, no acute distress, HEENT: No JVD noted. Mucosa moist. Pupils are equal and reactive to light bilaterally Cardiovascular: Normal S1 and S2. Regular and regular rhythm. No murmur appreciated Respiratory: Clear to auscultation bilaterally without wheezes or crackles. Abdomen: Soft, nontender, not distended, Skin: Dry, no rashes or bruising Musculoskeletal: No gross injuries. Able to move all 4 extremities. Non edematous lower extremities. Neuro: Alert and oriented x3. No focal neuro deficits. Psych: Normal affect and mood Discharge Plan Plan Patient Disposition: HOME (Self Care) Prescriptions/Referrals Prescriptions/Med Rec: New aspirin 81 mg Tablet,Delayed Release (Dr/Ec) 81 mg PO DAILY 30 Days Qty: 30 0RF ticagrelor [Brilinta] 90 mg Tablet 90 mg PO BID 30 Days Qty: 60 0RF atorvastatin 40 mg tablet 40 mg PO QPM Qty: 30 0RF Referrals: David Moore MD [Physician, Cardiology] Erik Trinidad PA-C [Primary Care Provider] Patient/Caregiver Discharge Instructions Other Discharge Activity Instructions:: Please see your PCP and dining room attendant in 1 week. Please start taking your new medications: Aspirin 81mg daily and Brilinta 90mg for your recent stent, Atorvastatin 80mg nightly for your elevated lipids Please avoid any heavy lifting and encourage lots of fluids We will hold your Metoprolol for now due to your soft BP. Please return to the ED if your symptoms worsen. If you do not have a PCP, please make an appointment with the [facility] at [phone] for Wednesdays or Fridays 1-4PM. Please repeat your regular labwork including CBC and CMP in 1 week. Education Materials: Peripheral Angiography, ED Heart Disease Education Print Language: Turkmen Stand Alone Forms: [place] Award Info., Patient Portal Info Letter Discharge Order Discharge Orders: Discharge (Routine); Ordered 06/01/25 Ordered By: Shaniqua Ferrera Quality Discharge Quality Measures VTE prophylaxis
[2025-06-01 12:00] VITALS: BP 109/75; PULSE 72; RESP 18; TEMP 36.2; O2SAT 98
== END 2025-06-01 13:20 | disposition home or self-care (01) | DRG 174 ==
LOC: SERX 05:46 → SERHOLD 06:01 → S2NX 13:00
PROVIDERS: Internal Medicine Cardiovascular Disease; Physician Assistant; Student in an Organized Health Care Education/Training Program; Admitting Provider Internal Medicine; Emergency Provider Emergency Medicine; PCP Physician Assistant; Visit Provider Internal Medicine
PROC: 4A023N7 Measurement of Cardiac Sampling and Pressure, Left Heart, Percutaneous Approach (ICD-10-PCS; principal; 2025-05-30 08:45)
DX: I21.4 Non-ST elevation (NSTEMI) myocardial infarction (principal); I10 Essential (primary) hypertension; N17.9 Acute kidney failure, unspecified; I16.1 Hypertensive emergency; D72.829 Elevated white blood cell count, unspecified; E66.9 Obesity, unspecified; R00.2 Palpitations; Z68.36 Body mass index [BMI] 36.0-36.9, adult; Z90.49 Acquired absence of other specified parts of digestive tract; Z87.891 Personal history of nicotine dependence; R73.03 Prediabetes; Z79.899 Other long term (current) drug therapy; E78.00 Pure hypercholesterolemia, unspecified; T59.811A Toxic effect of smoke, accidental (unintentional), initial encounter
CPT/HCPCS: 36415; 71046; 76700; 80053; 80061; 80307; 80320; 81001; 83036; 83735; 83880; 84100; 84439; 84443; 84484; 85025; 85347; 85610; 85730; 93005; 93306; 96365; 96366; 96375; 99152; 99153; 99284; A4649; C1725; C1769; C1874; C1887; C1894; J0168; J0461; J0780; J1643; J1644; J2250; J2270; J2312; J2371; J2405; J2470; J3010; J3490; Q9967; A9270; G0480; J2305